=== PATIENT | male | born 1975 | race Caucasian/White ===

== ENCOUNTER 2020-12-21 22:55 | Emergency (ER) | payer MEDICARE, MEDICAID ==
--- NOTE | 2020-12-21 23:10 | NUR ---
Vent set up by RT, airway secured. Pt has luca WEEKS. Placed in 4pt leather restraints, plan to extubate pt once ready. Requested haldol from pharmacy stat. vent setting 20 500, PEEP of 5 and 50%. end tidal 47-48.
[2020-12-21] MEDS ORDERED: HALOPERIDOL 5 MG/ML IM ONE (23:30)
--- NOTE | 2020-12-21 23:36 | NUR ---
Pt responding to voices, opens closes eyes. Extubated and all tubes removed. Pt answers limited questions, coughs. o2 sat 96% on 4L nc.
[2020-12-21 23:45] LABS: MICROSCOPIC AUTO
[2020-12-21 23:47] LABS: AMPHETAMINE SCREEN, URINE Negative (Negative); BARBITURATE SCREEN, URINE Negative (Negative); BENZODIAZEPINE SCREEN, URINE Positive (Negative); CANNABINOID SCREEN, URINE Negative (Negative); COCAINE SCREEN, URINE Negative (Negative); METHADONE SCREEN, URINE Negative (Negative); OPIATE SCREEN, URINE Negative (Negative)
--- NOTE | 2020-12-21 23:54 | NUR ---
Lab here drawing blood.
--- NOTE | 2020-12-21 23:59 | NUR ---
BEDSIDE REPORT RECEIVED FROM RAEANN NEFF
--- NOTE | 2020-12-22 00:01 | NUR ---
Report to TAWANDA Ortega. Pt remains waking up, slightly slurred speach, hoarse voice, confused by reorients easily. Remains L4's.
[2020-12-22 00:14] LABS: BASOPHILS % (AUTO) 0 % (0-1); EOSINOPHILS % (AUTO) 1 % (1-7); LYMPHOCYTES % (AUTO) 15 % (22-44); MEAN CORPUSCULAR HEMOGLOBIN 33.6 pg (27.5-34.5); MEAN CORPUSCULAR HGB CONC 34.7 g/dL (33.2-36.2); MEAN PLATELET VOLUME 8.2 fL (7.4-10.4); MONOCYTES % (AUTO) 12 % (2-9); NEUTROPHILS % (AUTO) 71 % (42-75); PLATELET COUNT 239 x10^3/uL (130-400); RED BLOOD COUNT 4.61 x10^6/uL (4.38-5.82)
[2020-12-22 00:15] LABS: MD NO
[2020-12-22 00:22] LABS: ALANINE AMINOTRANSFERASE 65 U/L (12-78); ALBUMIN 3.7 g/dL (3.4-5.0); ANION GAP 8 mmol/L (5-15); CALCIUM 8.2 mg/dL (8.5-10.1); CHLORIDE 106 mmol/L (98-107); CREATININE 1.09 mg/dL (0.7-1.3)
[2020-12-22 00:25] LABS: ALKALINE PHOSPHATASE 114 U/L (45-117); BILIRUBIN,TOTAL 0.7 mg/dL (0.2-1.0); TOTAL PROTEIN 7.4 g/dL (6.4-8.2)
[2020-12-22 00:34] LABS: SALICYLATE LEVEL < 1.7 mg/dL (2.8-20.0)
--- NOTE | 2020-12-22 01:00 | NUR ---
PT RESTING ON GURNEY WITH EYES CLOSED. AWAKES TO VERBAL COMMUNICATION, HOSTILE AND CONFUSED WHEN AWAKE. RESTRAINTS REMAIN IN PLACE. NO NEEDS AT THIS TIME. SITTER IN VIEW
--- NOTE | 2020-12-22 01:50 | NUR ---
PT INCREASINGLY AGITATED, ATTEMPTING TO PULL SELF OUT OF LEATHER RESTRAINTS. ERP AWARE, WILL MEDICATE PER EMAR.
[2020-12-22] MEDS ORDERED: LORazepam 2 MG/ML, 1ML ONE (01:55)
[2020-12-22] MEDS: PLEASE ENTER ALLERGIES MC SCH ×2 (02:00→02:30)
[2020-12-22] MEDS ORDERED: LORazepam 2 MG/ML, 1ML IVPush ONE (02:00)
[2020-12-22] MEDS ORDERED: HALOPERIDOL 5 MG/ML IV ONE (02:00)
--- NOTE | 2020-12-22 02:34 | NUR ---
TASK RN. PT WAKES UP TO NAME AND RESPONSES APPROPRIATELY ANSWERING QUESTIONS. PT MOVING AROUND IN BED TRYING TO SHAKE OUT OF RESTRAINTS AND BLOOD PRESSURE CUFFS.
--- NOTE | 2020-12-22 03:02 | NUR ---
PT RESTING ON GURNEY WITH EYES CLOSED. AWAKES TO VERBAL COMMUNICATION AND NAME, WHEN AWAKE PT A&OX4. RESTRAINTS REMAIN IN PLACE DUE TO HOSTILE BEHAVIOR. NO NEEDS AT THIS TIME. SITTER IN VIEW
--- NOTE | 2020-12-22 04:02 | NUR ---
PT RESTING ON GURNEY WITH EYES CLOSED. AWAKES TO VERBAL COMMUNICATION AND NAME, WHEN AWAKE PT A&OX4. TWO RESTRAINTS REMOVED, PT CALM AND COOPERATIVE WITH STAFF AT THIS TIME. NO NEEDS AT THIS TIME. SITTER IN VIEW. CONTINUOUS PULSE OX AND OCEAN LIFEGUARD IN PLACE.
--- NOTE | 2020-12-22 05:06 | NUR ---
RESTRAINTS REMOVED BY SECURITY. PT REMAINS CALM AND COOPERATIVE WITH STAFF, A&OX4 WHEN AWAKE. NO NEEDS AT THIS TIME. SITTER IN VIEW.
--- NOTE | 2020-12-22 05:59 | NUR ---
PT REMAINS CALM, SLEEPING SUPINE ON GURNEY, COOPERATIVE WITH STAFF. KRISTINE, VERO. PT HAS NO NEEDS AT THIS TIME. SITTER IN VIEW.
--- NOTE | 2020-12-22 06:20 | NUR ---
patient is self pay. packet faxed to [facility]
--- NOTE | 2020-12-22 06:55 | NUR ---
BEDSIDE REPORT TO DALE NEFF.
--- NOTE | 2020-12-22 07:06 | NUR ---
SBAR HAND-OFF REPORT RECEIVED FROM TAWANDA BUCKLEY. ASSUMING CARE OF PATIENT. PT SLEEPING. BREAKFAST TRAY ORDERED FOR PATIENT. PT REMAINS UNDER CONSTANT SUPERVISION OF SITTER AND REMAINS SAFE. PT SLEEPING AT THIS TIME WITH VS STABLE ON MONITOR.
--- NOTE | 2020-12-22 08:24 | NUR ---
PT CONTINUES TO SLEEP AND REMAINS UNDER CONSTANT SUPERVISION OF SITTER AND REMAINS SAFE. VS STABLE.
--- NOTE | 2020-12-22 09:58 | NUR ---
FATHER, CHUCK, CALLED. HIS PHONE NUMBER IS .
--- NOTE | 2020-12-22 10:30 | NUR ---
SEIZURE PADS APPLIED TO SIDE RAILS OF DEBBIERJERMAINE. FATHER CALLED AND NOTIFIED THIS RN THAT PATIENT HAS A HISTORY OF SEIZURES THAT THE FATHER HAS BEEN TRYING TO TREAT WITH CBD PILLS AT HOME IN [place] WITH SOME SUCCESS. FATHER STATES THAT PATIENT HAS BEEN ON KEPPRA, DIALANTIN AND TEGRATOL IN THE PAST WELL, BUT FATHER IS CONCERNED ABOUT SIDE EFFECTS OF MEDS AND PREFERS TO SEE THE PATIENT'S SEIZURES TREATED WITH CBD. PT PULLED OUT HIS IVs AND BLEEDING IS CONTROLLED. PT SLEEPING AND CONTINUES TO BE UNDER CONSTANT SUPERVISION OF SITTER AND REMAINS SAFE. VS STABLE.
[2020-12-22] MEDS ORDERED: CBD (10:36)
[2020-12-22] MEDS ORDERED: [UNRECOGNIZED DRUG - REMARK] PO (10:37)
[2020-12-22] MEDS ORDERED: OMEG1CAP23 PO (10:38)
--- NOTE | 2020-12-22 13:25 | NUR ---
PT IS AWAKE. A&04. CALM AND COOPERATIVE. FOOD TRAY PROVIDED. MULTIMEDIA EDITOR TO SEE.
--- NOTE | 2020-12-22 15:29 | NUR ---
PT WITH UPDATED INSURANCE. PACKET FAXED TO [facility] AND [facility]
[2020-12-22 15:30] VITALS: BP 114/65
--- NOTE | 2020-12-22 16:05 | NUR ---
RPT TO TAWANDA RENEE.
[2020-12-22] MEDS ORDERED: DIPHENHYDRAMINE 25 MG CAPSULE PO ONE (16:30)
[2020-12-22] MEDS ORDERED: LORazepam 1MG TABLET PO ONE (16:30)
[2020-12-22] MEDS ORDERED: HALOPERIDOL 5 MG TABLET PO ONE (16:30)
[2020-12-22] MEDS ORDERED: LORazepam 1MG TABLET ONE (16:35)
[2020-12-22] MEDS ORDERED: HALOPERIDOL 5 MG TABLET ONE (16:35)
[2020-12-22] MEDS ORDERED: DIPHENHYDRAMINE 50 MG CAPSULE ONE (16:35)
[2020-12-22] MEDS ORDERED: PLEASE ENTER HEIGHT AND WEIGHT MC SCH (17:00)
--- NOTE | 2020-12-22 17:01 | NUR ---
PT DC'D TO [facility] WITH [facility]. [facility] AWARE OF PIV IN LEFT ARM.
== END 2020-12-22 17:03 ==
LOC: ED 23:25
DX: F20.9 Schizophrenia, unspecified (principal); R45.1 Restlessness and agitation; R94.31 Abnormal electrocardiogram [ECG] [EKG]
CPT/HCPCS: 36415; 80053; 80299; 80307; 80320; 80329; 81001; 85025; 93005; 96372; 96374; 96375; 99285; J1630; J2060; Q0163; 94002; G0480

== ENCOUNTER 2020-12-29 00:13 | Emergency (ER) | payer MEDICARE, MEDICAID ==
[~2020-12-29] VITALS: Ht 188 cm; Wt 100.0 kg
[~2020-12-29 00:13] MED LIST: CBD; OMEG1CAP23 PO; [UNRECOGNIZED DRUG - REMARK] PO
--- NOTE | 2020-12-29 01:24 | NUR ---
PATIENT RESTING IN BED IN NAD. DAD CALLED AND STATES THAT HE WAS WEANING PATIENT OFF OF HIS SEIZURE MEDICATION BECAUSE "IT WASNT WORKING. HE WAS STILL HAVING SEIZURES. SO I PUT HIM ON CBD PILLS AND ITS BEEN WORKING AND GUILHERME BEEN WEANING HIM OFF THE SEIZURE PILLS. BUT IF YOU HAVE TO PUT HIM ON ANOTHER SEIZURE PILL, IT NEEDS TO BE ABLE TO BE TAKEN WITH CBD". 1:1 [facility] SITTER AT BEDSIDE. PATIENT IS UNABLE TO STAY AWAKE TO ANSWER QUESTIONS. CALL GAMA IN REACH. SAFETY MAINTAINED.
[2020-12-29] MEDS ORDERED: SODIUM CHLORIDE 0.9% 1,000ML IVBOLUS ONE (01:30)
[2020-12-29] MEDS ORDERED: SODIUM CHLORIDE FLUSH 10ML SYR IVF ONE (01:30)
--- NOTE | 2020-12-29 01:34 | NUR ---
ATTEMPTED CALLING [facility] TO GET NAME OF SEIZURE MEDICATION PATIENT SHOULD BE TAKING AT HOME AND SPOKE WITH ARASELI WHO SAID THE NURSE WOULD CALL ME BACK WHEN PRIMARY RN WAS AVAILABLE
[2020-12-29 01:53] LABS: BASOPHILS % (AUTO) 0 % (0-1); EOSINOPHILS % (AUTO) 1 % (1-7); LYMPHOCYTES % (AUTO) 13 % (22-44); MEAN CORPUSCULAR HEMOGLOBIN 33.8 pg (27.5-34.5); MEAN CORPUSCULAR HGB CONC 35.4 g/dL (33.2-36.2); MONOCYTES % (AUTO) 12 % (2-9); NEUTROPHILS % (AUTO) 74 % (42-75); PLATELET COUNT 262 x10^3/uL (130-400); RED BLOOD COUNT 4.33 x10^6/uL (4.38-5.82); RED CELL DISTRIBUTION WIDTH 12.7 % (9.4-14.8)
[2020-12-29] MEDS ORDERED: OXCA300T3 PO (01:53)
[2020-12-29 01:54] LABS: ALANINE AMINOTRANSFERASE 55 U/L (12-78); ALBUMIN 3.5 g/dL (3.4-5.0); ANION GAP 7 mmol/L (5-15); CALCIUM 8.2 mg/dL (8.5-10.1); CHLORIDE 107 mmol/L (98-107)
[2020-12-29 01:56] LABS: ALKALINE PHOSPHATASE 98 U/L (45-117); BILIRUBIN,TOTAL 0.5 mg/dL (0.2-1.0); TOTAL PROTEIN 7.3 g/dL (6.4-8.2)
[2020-12-29 02:06] LABS: MD NO
[2020-12-29] MEDS ORDERED: LACOSAMIDE 50 MG TABLET PO ONE (02:30)
--- NOTE | 2020-12-29 02:57 | NUR ---
DR. KEANE NOTIFIED THAT PATIENT IS NOT ALERT ENOUGH TO TAKE VIMPAT SAFELY SO I AM UNABLE TO ADMINISTER THIS AT THIS TIME. NO FURTHER INTERVENTIONS AT THIS TIME. ALSO, WAITING FOR UTOX. DR. KEANE NOTIFIED OF UNABLE TO WAKE PATIENT TO OBTAIN THIS. NO INTERVENTION/STRAIGHT CATH AT THIS TIME PER PROVIDER. [facility] 1:1 AT BEDSIDE
--- NOTE | 2020-12-29 03:25 | NUR ---
still unable to keep patient awake and keep conversation. sternal rub used to wake patient and asked him to open eyes, which he did and told me he was at the hospital because he had a seziure but then started snoring seconds later and stopped responding.
--- NOTE | 2020-12-29 04:10 | NUR ---
patient becoming more alert but still frequently drowsy. passed swallow bedside eval. took new medication for seizures. weaned to 1L via NC. trialed RA but patient dipped down to 87%
--- NOTE | 2020-12-29 05:10 | NUR ---
Report called to Gabrielle RN at [facility] at 0510. no further questions from [facility] RN. prescription placed with transferring packet along with legal hold paperwork. [facility] 1:1 remains at bedside
--- NOTE | 2020-12-29 05:35 | NUR ---
patient ambulated to ambulance bay with steady gait. dc paperwork and prescription, legal hold paperwork handed to ZACK reddy. IV removed per dc policy. VS remained stable on RA. patient more alert on dc. I did educate patient on new seizure medication and importance of taking these medications to prevent seizures and we sent him with a referral to a neurologist in [place] for follow up. patient verbalized understanding of this education. no personal belongings brought with patient when transferred from [facility] to [facility]
[2020-12-29 05:52] VITALS: BP 113/68
== END 2020-12-29 05:56 ==
LOC: ED 00:52
DX: R56.9 Unspecified convulsions (principal)
CPT/HCPCS: 36415; 71045; 80053; 80320; 85025; 96360; 96361; 99285; J7030; G0480